=== PATIENT | male | born 1970 | race Caucasian/White ===

== ENCOUNTER 2019-07-24 08:55 | Emergency (ER) | payer OTHER ==
[~2019-07-24] VITALS: Ht 182.9 cm; Wt 105.7 kg
[~2019-07-24 08:55] MED LIST: ADVIL200 MG PO; DIAZEPAM5 MG PO
== END 2019-07-24 11:05 | disposition home or self-care (01) ==
LOC: ED 08:55
DX: S16.1XXA Strain of muscle, fascia and tendon at neck level, initial encounter (principal); S29.012A Strain of muscle and tendon of back wall of thorax, initial encounter; F17.200 Nicotine dependence, unspecified, uncomplicated; Z88.2 Allergy status to sulfonamides; V49.40XA Driver injured in collision with unspecified motor vehicles in traffic accident, initial encounter
CPT/HCPCS: 72040; 99284-25; A9270

== ENCOUNTER 2019-12-29 10:40 | Emergency (ER) | payer OTHER ==
[~2019-12-29] VITALS: Ht 182.9 cm; Wt 105.7 kg
== END 2019-12-29 12:20 | disposition home or self-care (01) ==
LOC: ED 10:40
DX: S80.11XA Contusion of right lower leg, initial encounter (principal); F17.200 Nicotine dependence, unspecified, uncomplicated; Z88.2 Allergy status to sulfonamides; W01.0XXA Fall on same level from slipping, tripping and stumbling without subsequent striking against object, initial encounter
CPT/HCPCS: 73590; 99283-25; 99406

== ENCOUNTER 2020-05-31 10:23 | Emergency (ER) | payer OTHER ==
[~2020-05-31] VITALS: Ht 190.5 cm; Wt 104.3 kg
[2020-05-31] MEDS ORDERED: KEFLEX500 MG PO (13:35)
== END 2020-05-31 13:51 | disposition home or self-care (01) ==
LOC: ED 10:23
DX: H00.011 Hordeolum externum right upper eyelid (principal); F17.200 Nicotine dependence, unspecified, uncomplicated; Z88.2 Allergy status to sulfonamides; Z85.6 Personal history of leukemia
CPT/HCPCS: 99283

== ENCOUNTER 2020-08-10 12:27 | Emergency (ER) | payer OTHER ==
[~2020-08-10] VITALS: Ht 182.9 cm; Wt 108.9 kg
[~2020-08-10 12:27] MED LIST changes: +KEFLEX500 MG PO
[2020-08-10] MEDS ORDERED: CYCLOBENZAPRINE10 MG PO (14:02)
[2020-08-10] MEDS ORDERED: PREDNISONE20 MG PO (14:02)
== END 2020-08-10 14:15 | disposition home or self-care (01) ==
LOC: ED 12:27
DX: S29.012A Strain of muscle and tendon of back wall of thorax, initial encounter (principal); X50.0XXA Overexertion from strenuous movement or load, initial encounter; F17.200 Nicotine dependence, unspecified, uncomplicated; Z88.2 Allergy status to sulfonamides
CPT/HCPCS: 99283